=== PATIENT | female | born 1985 | race Caucasian/White ===

== ENCOUNTER 2016-11-06 18:59 | Emergency (ER) | payer OTHER ==
[~2016-11-06] VITALS: Ht 172.7 cm; Wt 90.7 kg
[~2016-11-06 18:59] MED LIST: HYDR-971 PO; IBUP400T PO; OXYC-323 PO; PENI250T2 PO
[2016-11-06] MEDS ORDERED: ONDANSETRON PF 4 MG/2 ML VIAL. ONE (19:01)
[2016-11-06] MEDS: ONDANSETRON PF 4 MG/2 ML VIAL. IV ONE ×2 (19:05)
[2016-11-06] MEDS: FAMOTIDINE 20 MG/2 ML VIAL IVP ONE (19:20)
[2016-11-06] MEDS: IV NORMAL SALINE 1,000ML 1,000 ML IV SCH (19:20)
[2016-11-06 19:35] LABS: BASO # 0.1 x10^3/uL (0.0-0.2); BASO % 1 % (0-3); EOS # 0.2 x10^3/uL (0.0-0.7); EOS % 1 % (0-3); HEMATOCRIT 36.9 % (36.0-47.0); HEMOGLOBIN 12.5 g/dL (12.0-15.5); LYMPH # 2.1 x10^3/uL (1.0-4.8); LYMPH % 14 % (24-48); MEAN CORPUSCULAR HEMOGLOBIN 32 pg (25-35); MEAN CORPUSCULAR HGB CONC 34 g/dL (31-37); MEAN CORPUSCULAR VOLUME 96 fL (79-100); MONO # 0.9 x10^3/uL (0.0-1.1); MONO % 6 % (0-9); NEUT # 11.9 x10^3uL (1.8-7.7); NEUT % 78 % (31-73); PLATELET COUNT 262 x10^3/uL (140-400); RED BLOOD COUNT 3.86 x10^6/uL (3.50-5.40); RED CELL DISTRIBUTION WIDTH 12.7 % (11.5-14.5); WHITE BLOOD COUNT 15.3 x10^3/uL (4.0-11.0)
--- NOTE | 2016-11-06 19:37 | PHYS DOC ---
General Chief Complaint: VOMITING IN Stated Complaint: VOMITING IN Time Seen by MD: 19:04 Source: patient, EMS, old records Exam Limitations: no limitations Problems: History of Present Illness Initial Comments Pt is 31/F states she's 4mos gestation to ED via EMS for n/v. Pt is A1 thinks she's 4mos gestation (LMP estimated 2/1 but pt is not sure) to ED c/o N/V. States she had hyperemesis gravidarium with prior pregnancies and tonight's sx are consistent with prior. No focal abdominal pain, just n/v and dry heaves. N/V started yesterday, in past pt took zofran with good relief. Still smoking, scheduled for initial OB appointment next week. No prearrival treatment, no abdominal/low back/pelvic/vaginal symptoms. No fever/ chills/VELAZQUEZ/myalgias. Timing/Duration: 24 hours Severity: severe Modifying Factors: worse with eating, improves with medication, worse with movement, improves with rest Associated Symptoms: malaise, nausea/vomiting, weakness, other Allergies: Coded Allergies: No Known Drug Allergies (Unverified , 03/31/16) Past Medical History Medical History: other (asthma, anxiety, depression, hyperemesis gravidarium) Surgical History: noncontributory (CS) Social History Smoker: cigarettes (h/o 1/2PPD denies current) Alcohol: occasionally Drugs: none Review of Systems Constitutional: denies chills, denies fever, malaise Respiratory: denies cough, denies shortness of breath, denies wheezing Cardiovascular: denies chest pain, denies palpitations, denies syncope Gastrointestinal: denies abdominal pain, denies constipation, denies diarrhea, nausea vomiting Genitourinary: denies discharge, denies dysuria, denies hematuria Musculoskeletal: denies back pain, denies joint swelling, denies neck pain Psychiatric/Neurological: denies headache, denies numbness, denies paresthesia Hematologic/Lymphatic: denies blood clots, denies easy bleeding, denies easy bruising Physical Exam General Appearance: moderate distress (n/v, retching), obese Eyes: bilateral eye EOMI, bilateral eye PERRL, bilateral eye normal inspection Ear, Nose, Throat: hearing grossly normal, normal ENT inspection, normal pharynx Neck: non-tender, supple Respiratory: normal breath sounds, no respiratory distress Cardiovascular: normal peripheral pulses, regular rate, rhythm Gastrointestinal: soft (ND, diffusely TTP no r/g/mass, neg mcburn/aaron, BS normal) Rectal: deferred Back: no CVA tenderness, no vertebral tenderness Extremities: non-tender, normal inspection, no pedal edema Neurologic/Psychiatric: manager research II-XII nml as tested, no motor/sensory deficits, alert, normal mood/affect, oriented x 3 Skin: normal color, warm/dry Orders, Labs, Meds Pertinent labs: WBC 15.3, K+ 3.2, emesis gastroccult negative, serum HCG 2049 K+ po given for replacement. Pt feeling better with IV fluids/zofran, ready for d/c. She expressed agreement/understanding with treatment plan. Departure Time of Disposition: 20:43 Disposition: 01 HOME, SELF-CARE Diagnosis: hyperemesis gravidarium, hypokalemia Condition: IMPROVED Patient Instructions: Diet - Hyperemesis Gravidarum, Hyperemesis Gravidarum, Hypokalemia-Brief Additional Instructions: Rest, no strenuous activity. Aggressive hydration with gatorade, water. Stop smoking, seek medical assistance if necessary. See handouts for diet/lifestyle changes. Eat one banana twice daily until OB appointment. Rx: zofran odt Follow up with [facility]ORDS MANAGER this week as scheduled. Return to ED with new or changing symptoms. RADHA RICO DO Nov 06, 2016 19:37
[2016-11-06 19:46] LABS: AMORPHOUS SEDIMENT,UR PRESENT /HPF; BACTERIA,URINE 0 /HPF (0-FEW); BILIRUBIN,URINE NEG (NEG); CLARITY,URINE CLEAR; COLOR,URINE YELLOW; GLUCOSE,URINE NEG (NEG); NITRITE,URINE NEG (NEG); RBC,URINE OCC /HPF (0-2); SQUAMOUS EPITHELIAL CELL,UR MOD /LPF; UROBILINOGEN,URINE 1 mg/dL (0.2 mg/dL); WBC,URINE OCC /HPF (0-4)
[2016-11-06 19:48] LABS: CALCIUM 8.4 mg/dL (8.5-10.1); CREATININE 0.8 mg/dL (0.6-1.0); DIRECT BILIRUBIN 0.1 mg/dL (0.0-0.2); GFR 83.7; POTASSIUM 3.2 mmol/L (3.5-5.1); TOTAL BILIRUBIN 0.3 mg/dL (0.2-1.0); TOTAL PROTEIN 7.2 g/dL (6.4-8.2)
[2016-11-06 20:04] LABS: GASTRIC OB PAT NEGATIVE (NEG)
[2016-11-06 20:24] VITALS: BP 111/53
[2016-11-06] MEDS ORDERED: ONDA4TAB10 PO (20:47)
[2016-11-06] MEDS: ONDANSETRON 4MG ODT 4TABLET STARTPACK. PO ONE (20:56)
[2016-11-06] MEDS: POTASSIUM CHLORIDE 20 MEQ TABLET.ER. PO ONE (20:56)
[2016-11-06 21:10] LABS: % BASOS 1 % (0-3); % LYMPHS 19 % (24-48); % MONOS 4 % (0-10); % SEGS 76 % (35-66); HYPOCHROMIA SLIGHT; PLT ESTIMATE ADEQUATE (ADEQUATE); POLYCHROMASIA SLIGHT
[2016-11-06 21:11] LABS: OVALOCYTES OCC
== END 2016-11-06 20:55 | disposition home or self-care (01) ==
LOC: ER 18:59
DX: O21.0 Mild hyperemesis gravidarum (principal); E87.6 Hypokalemia; O99.331 Smoking (tobacco) complicating pregnancy, first trimester; J45.909 Unspecified asthma, uncomplicated; Z3A.12 12 weeks gestation of pregnancy
CPT/HCPCS: 36415; 80048; 80076; 81001; 82271; 84702; 85007; 85027; 96361; 96374; 96375; 99284; J2405; Q0162; S0028; J7030

== ENCOUNTER 2016-11-08 11:00 | Emergency (ER) | payer OTHER ==
[~2016-11-08] VITALS: Ht 172.7 cm; Wt 90.7 kg
[~2016-11-08 11:00] MED LIST changes: +ONDA4TAB10 PO
--- NOTE | 2016-11-08 11:15 | PHYS DOC ---
General Stated Complaint: ANXIETY ATTACK Time Seen by MD: 11:03 Source: patient, old records Exam Limitations: no limitations Problems: History of Present Illness Initial Comments Pt is 31/F to ED c/o panic attack. Pt is 6 mos gestation, states she had argument with her SO about 3 hours ago causing a panic attack. She usually takes klonopin but her doctor will not refill med due to . Pt was seen here 11/06 (two days ago) with hyperemesis gravidarium and hypokalemia she did well with ED treatment and was d/c home. Pt reportedly was seen at [facility] yesterday for similar symptoms, those records have been requested. Denies SI/HI. Historian was RN. Timing/Duration: 1-3 hours Severity: severe Modifying Factors: improves with other Allergies: Coded Allergies: No Known Drug Allergies (Unverified , 03/31/16) Past Medical History Medical History: other (asthma, anxiety, depression, hyperemesis gravidarium, hypokalemia) Surgical History: noncontributory (CS) Social History Smoker: cigarettes, less than 1 pack/day Alcohol: occasionally Drugs: none Review of Systems All Other Systems: Reviewed and Negative (unknown, pt left without being seen) Physical Exam General Appearance: other (no exam, pt left AMA without being seen) Orders, Labs, Meds Pt total stay in ED 28 minutes. RN reports shortly after arrival pt began complaining to staff that she wasn't being seen fast enough. Pt has history of aggressive behavior, impatience, and verbal abuse most recently 11/06 ED visit ( see my documentation and nn). Pt reportedly started an altercation, threatened RN using profanity. RN notified pt this behavior not tolerated and security would be notified. Pt continued tirade and reportedly left AMA without being seen see nn. Departure Disposition: AGAINST MEDICAL ADVICE Diagnosis: noncompliance, , against medical advice Condition: LEFT WITHOUT BEING SEEN RADHA RICO DO Nov 08, 2016 11:15
[2016-11-08 11:20] VITALS: BP 111/53
== END 2016-11-08 11:42 | disposition left against medical advice (07) ==
LOC: ER 11:00
DX: O26.892 Other specified pregnancy related conditions, second trimester (principal); O99.332 Smoking (tobacco) complicating pregnancy, second trimester; F41.0 Panic disorder [episodic paroxysmal anxiety]; F32.9 Major depressive disorder, single episode, unspecified; F41.9 Anxiety disorder, unspecified; J45.909 Unspecified asthma, uncomplicated; E87.6 Hypokalemia; Z91.14 Patient's other noncompliance with medication regimen; Z3A.24 24 weeks gestation of pregnancy
CPT/HCPCS: 99281

== ENCOUNTER 2016-11-22 10:13 | Emergency (ER) | payer OTHER ==
[~2016-11-22] VITALS: Ht 172.7 cm; Wt 90.7 kg
[2016-11-22 10:22] VITALS: BP 137/72
--- NOTE | 2016-11-22 11:01 | ED.ADGEN ---
Past History Past Medical History: Asthma Past Surgical History: Alcohol Use: None Drug Use: None Adult General HPI HPI Patient is a 31-year-old female presents emergency Department clinic 2 day history of cough and nasal congestion. She was receiving by her primary care physician yesterday who diagnosed with an acute bronchitis. She prescribed her albuterol inhaler along with supportive care. Review of Systems Review of Systems Constitutional: Denies fever or chills [] Eyes: Denies change in visual acuity, redness, or eye pain [] HENT: Denies nasal congestion or sore throat [] Respiratory: Denies cough or shortness of breath [] Cardiovascular: No additional information not addressed in HPI [] GI: Denies abdominal pain, nausea, vomiting, bloody stools or diarrhea [] : Denies dysuria or hematuria [] Musculoskeletal: Denies back pain or joint pain [] Integument: Denies rash or skin lesions [] Neurologic: Denies headache, focal weakness or sensory changes [] Endocrine: Denies polyuria or polydipsia [] Allergies Allergies Allergies Coded Allergies Type Severity Reaction Last Updated Verified No Known Drug Allergies 03/31/16 No Physical Exam Physical Exam Constitutional: Well developed, well nourished, no acute distress, non-toxic appearance. [] HENT: Normocephalic, atraumatic, bilateral external ears normal, oropharynx moist, no oral exudates, nose normal. [] Eyes: PERRLA, EOMI, conjunctiva normal, no discharge. [] Neck: Normal range of motion, no tenderness, supple, no stridor. [] Cardiovascular:Heart rate regular rhythm, no murmur [] Lungs & Thorax: Bilateral breath sounds clear to auscultation [] Abdomen: Bowel sounds normal, soft, no tenderness, no masses, no pulsatile masses. [] Skin: Warm, dry, no erythema, no rash. [] Back: No tenderness, no CVA tenderness. [] Extremities: No tenderness, no cyanosis, no clubbing, ROM intact, no edema. [] Neurologic: Alert and oriented X 3, normal motor function, normal sensory function, no focal deficits noted. [] Psychologic: Affect normal, judgement normal, mood normal. [] Current Patient Data Vital Signs Vital Signs Date Time Temp Pulse Resp B/P Pulse Ox O2 Delivery O2 Flow Rate FiO2 11/22/16 10:22 97.8 98 20 96 Room Air EKG EKG [] Radiology/Procedures Radiology/Procedures [] Course & Med Decision Making Course & Med Decision Making Pertinent Labs and Imaging studies reviewed. (See chart for details) Patient was instructed to continue following her physician's directions. She is follow-up with him as needed. [] Final Impression Final Impression Acute bronchitis [] Problems: Dragon Disclaimer Dragon Disclaimer This electronic medical record was generated, in whole or in part, using a voice recognition dictation system. SOPHIE LANDRY MD Nov 22, 2016 11:01
== END 2016-11-22 10:46 | disposition home or self-care (01) ==
LOC: ER 10:13
DX: J20.9 Acute bronchitis, unspecified (principal); J45.909 Unspecified asthma, uncomplicated
CPT/HCPCS: 99281

== ENCOUNTER 2016-12-06 23:05 | Emergency (ER) | payer OTHER ==
--- NOTE | 2016-12-06 23:26 | ED.ADGEN ---
Past History Past Medical History: Asthma Past Surgical History: Alcohol Use: None Drug Use: None Adult General Chief Complaint Chief Complaint " A little spider bit my Rt leg this morning.. but it gotten so much worse.... " HPI HPI Patient is a 31 year old female who presents with above hx and complaints of spider bite Rt. calf. Pt. states earlier yesterday it bite was just small pinpoint area and not tender. Pt. leg now very tender and has area 8 x 8 cm of erythema. No lymphatic drainage or adenopathy appreciated. No history of prior episodes of MRSA or cellulitis. Distal neurovascular intact. Patient is up-to-date with her tetanus vaccination. She has currently 7/2 months . Patient is 3 para 2. Review of Systems Review of Systems Constitutional: Denies fever or chills [] Eyes: Denies change in visual acuity, redness, or eye pain [] HENT: Denies nasal congestion or sore throat [] Respiratory: Denies cough or shortness of breath [] Cardiovascular: No additional information not addressed in HPI [] GI: Denies abdominal pain, nausea, vomiting, bloody stools or diarrhea [] : Denies dysuria or hematuria [] Musculoskeletal: Denies back pain or joint pain [] Integument: Complaints of spider bite right calf Neurologic: Denies headache, focal weakness or sensory changes [] Endocrine: Denies polyuria or polydipsia [] Family History Family History Noncontributory Current Medications Current Medications Current Medications Medications (Trade) Dose Ordered Sig/Randa Start Time Stop Time Status Last Admin Dose Admin Ceftriaxone Sodium (Rocephin Im) 1 gm 1X ONCE 12/07/16 01:00 12/07/16 01:01 DC 12/07/16 01:00 1 GM Clindamycin Palmitate HCl (Cleocin Pediatric) 300 mg Q8HRS 12/07/16 06:00 12/07/16 06:00 DC Clindamycin HCl (Cleocin) 300 mg 1X ONCE 12/07/16 01:00 12/07/16 01:03 DC 12/07/16 01:00 300 MG Allergies Allergies Allergies Coded Allergies Type Severity Reaction Last Updated Verified No Known Drug Allergies 03/31/16 No Physical Exam Physical Exam Constitutional: in acute distress, non-toxic appearance. [] HENT: Normocephalic, atraumatic, bilateral external ears normal, oropharynx moist, no oral exudates, nose normal. [] Eyes: PERRLA, EOMI, conjunctiva normal, no discharge. [] Neck: Normal range of motion, no tenderness, supple, no stridor. [] Cardiovascular:Heart rate regular rhythm, no murmur [] Lungs & Thorax: Bilateral breath sounds equal with scattered wheezes auscultation [] Abdomen: Bowel sounds normal, soft, no tenderness, no masses, no pulsatile masses. Gravid. movements appreciated. heart rate approximate 156- 160 Skin: Warm, dry, no erythema, area of cellulitis or insect bite right calf as per history of present illness Back: No tenderness, no CVA tenderness. [] Extremities: No tenderness, no cyanosis, no clubbing, ROM intact, no ankle edema. [] Neurologic: Alert and oriented X 3, normal motor function, normal sensory function, no focal deficits noted. DTRs +2 at patella Psychologic: Affect anxious, judgement normal, mood normal. [] Current Patient Data Vital Signs Vital Signs Date Time Temp Pulse Resp B/P Pulse Ox O2 Delivery O2 Flow Rate FiO2 12/07/16 00:36 97.8 87 20 95 EKG EKG [] Radiology/Procedures Radiology/Procedures [] Course & Med Decision Making Course & Med Decision Making Pertinent Labs and Imaging studies reviewed. (See chart for details). Patient massage area of insect bite and cellulitis. Polysporin 4 times a day. Patient to take clindamycin 300 mg 3 times a day for the next 7 days. Ice packs to area of erythema. Patient may take Benadryl 25 mg up 4 times a day for itching. If pain patient may take Tylenol, if marked pain may take Vicodin up 4 times a day. Must follow-up primary care. Return if any concerns. Patient encouraged to stop smoking. [] Final Impression Final Impression 1. History of right calf spider bite 2. Right calf cellulitis versus inflammatory reaction 3. Tobacco abuse 4. Gravid 7 and 1/2 months. [] Problems: Dragon Disclaimer Dragon Disclaimer This electronic medical record was generated, in whole or in part, using a voice recognition dictation system. KEYLA FERNANDEZ MD Dec 06, 2016 23:26
[2016-12-07 00:36] VITALS: BP 123/70
[2016-12-07] MEDS ORDERED: CLIN300C86 PO (00:39)
[2016-12-07] MEDS ORDERED: HYDR1TAB12 PO (00:39)
[2016-12-07] MEDS ORDERED: BACI28.34 TP (00:39)
[2016-12-07] MEDS: CLINDAMYCIN HCL 150 MG CAPSULE PO ONE (01:00)
[2016-12-07] MEDS: CEFTRIAXONE IM 1 GM VIAL. IM ONE (01:00)
[2016-12-07] MEDS ORDERED: CLINDAMYCIN 75 MG/5 ML ORAL SOLUTION. PO SCH (06:00)
== END 2016-12-07 01:00 | disposition home or self-care (01) ==
LOC: ER 23:07
DX: O26.891 Other specified pregnancy related conditions, first trimester (principal); T63.301A Toxic effect of unspecified spider venom, accidental (unintentional), initial encounter; O99.331 Smoking (tobacco) complicating pregnancy, first trimester; J45.909 Unspecified asthma, uncomplicated; Z3A.01 Less than 8 weeks gestation of pregnancy; Y92.89 Other specified places as the place of occurrence of the external cause
CPT/HCPCS: 96372; 99283; J0696

== ENCOUNTER 2016-12-08 15:42 | Emergency (ER) | payer OTHER ==
[~2016-12-08 15:42] MED LIST changes: +BACI28.34 TP; +CLIN300C86 PO; +HYDR1TAB12 PO
[2016-12-08 15:45] VITALS: BP 126/63
--- NOTE | 2016-12-08 17:04 | ED.ADGEN ---
Past History Past Medical History: No Pertinent History Past Surgical History: Other Alcohol Use: Occasionally Drug Use: None Adult General Chief Complaint Chief Complaint R leg pain HPI HPI Patient is a 31 year old female who presents with R leg pain. Pt reports she has been taking clindamycin as prescribed on previous ER visit for cellulitis. At that time, the erythema was measured 8x8cm. Pt is requesting a work note today due to the pain she's having. Pt was prescribed hydrocodone for pain on previous ER visit. Review of Systems Review of Systems Constitutional: Denies fever or chills [] Eyes: Denies change in visual acuity, redness, or eye pain [] HENT: Denies nasal congestion or sore throat [] Respiratory: Denies cough or shortness of breath [] Cardiovascular: denies chest pain GI: Denies abdominal pain, nausea, vomiting, bloody stools or diarrhea [] : Denies dysuria or hematuria [] Musculoskeletal: Denies back pain Integument: Denies rash or skin lesions [] Neurologic: Denies headache, focal weakness or sensory changes [] Allergies Allergies Allergies Coded Allergies Type Severity Reaction Last Updated Verified No Known Drug Allergies 03/31/16 No Physical Exam Physical Exam Constitutional: Well developed, well nourished, no acute distress, non-toxic appearance. [] HENT: Normocephalic, atraumatic Eyes: conjunctiva normal, no discharge. [] Neck: Normal range of motion Lungs & Thorax: no respiratory distress Skin: Warm, dry, 1.5x1.5 cm erythema with central scab on R lateral mid lower leg without clear fluctuance, diffuse ttp throughout the RLE/calf that appears to be out of proportion , no other erythema or edema appreciated Neurologic: Alert and oriented X 3, normal motor function, normal sensory function, no focal deficits noted. [] Current Patient Data Vital Signs Vital Signs Date Time Temp Pulse Resp B/P Pulse Ox O2 Delivery O2 Flow Rate FiO2 12/08/16 15:45 96.6 90 18 97 Room Air EKG EKG [] Radiology/Procedures Radiology/Procedures [] Course & Med Decision Making Course & Med Decision Making Pertinent Labs and Imaging studies reviewed. (See chart for details) I suggested the patient we do a ultrasound to rule out abscess, our ultrasound machine would not work. Therefore I did order venous Doppler is concerned the patient's pain was out of proportion to her exam, possible DVT. I explained to the patient we would be ordering this test and asked that they look for abscess as well. However then patient explained to the nursing she didn't want to do this test she just wanted a worknote that said she did not have to go to work. Patient was told that we needed to rule out a serious cause for her intense pain. If she was not willing to have this test performed, she would need to sign out AGAINST MEDICAL ADVICE. The patient signed an AMA form and was given a work note for her visit here in the ED. It did not excuse her from going to work her today. Patient was angry at this response and patient walked out of the ER cursing at staff with multiple words of profanity, no difficulty with her gait or limping. Final Impression Final Impression Cellulitis of the right leg [] Problems: Dragon Disclaimer Dragon Disclaimer This electronic medical record was generated, in whole or in part, using a voice recognition dictation system. BENNY MULLINS MD Dec 08, 2016 17:03
== END 2016-12-08 16:15 | disposition left against medical advice (07) ==
LOC: ER 15:42
DX: L03.115 Cellulitis of right lower limb (principal)
CPT/HCPCS: 99281

== ENCOUNTER 2016-12-13 15:19 | Emergency (ER) | payer OTHER ==
[~2016-12-13] VITALS: Ht 172.7 cm; Wt 88.9 kg
[2016-12-13 15:55] VITALS: BP 120/86
--- NOTE | 2016-12-13 19:23 | ED.ADGEN ---
Past History Past Medical History: No Pertinent History Past Surgical History: No Surgical History Alcohol Use: None Drug Use: None Adult General HPI HPI Patient is a 31-year-old approximately 28 weeks gestation, who presents to the emergency department with complaint of abdominal cramping, nausea and vomiting, and vaginal discharge. Patient denies any fevers or chills, any injuries, any sick contacts or exposure. She states that this does not feel like her previous labor pains. Pain began several hours before arrival in the ED. Patient states she's had thick white discharge for the past several days, but denies any passage of fluid or bleeding from the vagina. States she can feel motions. Review of Systems Review of Systems Constitutional: Denies fever or chills [] Eyes: Denies change in visual acuity, redness, or eye pain [] HENT: Denies nasal congestion or sore throat [] Respiratory: Denies cough or shortness of breath [] Cardiovascular: No additional information not addressed in HPI [] GI: Denies bloody stools or diarrhea [abdominal pain and cramping, nausea and vomiting.] : Denies dysuria or hematuria [] Musculoskeletal: Denies back pain or joint pain [] Integument: Denies rash or skin lesions [] Neurologic: Denies headache, focal weakness or sensory changes [] Endocrine: Denies polyuria or polydipsia [] Allergies Allergies Allergies Coded Allergies Type Severity Reaction Last Updated Verified No Known Drug Allergies 03/31/16 No Physical Exam Physical Exam Constitutional: Well developed, well nourished, no acute distress, non-toxic appearance. [] HENT: Normocephalic, atraumatic, bilateral external ears normal, oropharynx moist, no oral exudates, nose normal. [] Eyes: PERRLA, EOMI, conjunctiva normal, no discharge. [] Neck: Normal range of motion, no tenderness, supple, no stridor. [] Cardiovascular:Heart rate regular rhythm, no murmur, S1, S2, rubs or gallops. [] Lungs & Thorax: Bilateral breath sounds clear to auscultation, no wheezing, rhonchi, rales. No chest wall crepitus or tenderness. [] Abdomen: Bowel sounds normal, soft, no tenderness, no rebound, rigidity, no guarding, gravid abdomen, consistent with dates, no masses, no pulsatile masses. [] Skin: Warm, dry, no erythema, no rash. [] Back: No tenderness, no CVA tenderness. [] Extremities: No tenderness, no cyanosis, no clubbing, ROM intact, no edema. [] Neurologic: Alert and oriented X 3, normal motor function, normal sensory function, no focal deficits noted. [] Psychologic: Affect normal, judgement normal, mood normal. [] Pelvic examination: Patient with external os 1 cm, internal os is closed, no contractions, patient noted to have a large amount of white discharge on glove. Current Patient Data Vital Signs Vital Signs Date Time Temp Pulse Resp B/P Pulse Ox O2 Delivery O2 Flow Rate FiO2 12/13/16 15:55 98.2 98 16 98 Room Air EKG EKG [] Radiology/Procedures Radiology/Procedures [] Course & Med Decision Making Course & Med Decision Making Pertinent Labs and Imaging studies reviewed. (See chart for details) Patient with no evidence of active labor or impending delivery. However as we do not have CHILD SUPPORT OFFICER at [facility] facility, and patient's complaints require CHILD SUPPORT OFFICER evaluation, I did speak with her CHILD SUPPORT OFFICER Dr. Akers, we will transfer the patient the EMS to [facility] for evaluation. She was agreeable with this plan, patient transferred via EMS without issue for additional CHILD SUPPORT OFFICER evaluation. Final Impression Final Impression [] Problems: (1) Abdominal pain in Qualifiers: Qualified Code: O26.893 - Other specified related conditions, third trimester Dragon Disclaimer Dragon Disclaimer This electronic medical record was generated, in whole or in part, using a voice recognition dictation system. ASTER LANDRY DO Dec 13, 2016 19:23
== END 2016-12-13 16:10 | disposition short-term general hospital (02) ==
LOC: ER 15:19
DX: O26.893 Other specified pregnancy related conditions, third trimester (principal); R10.9 Unspecified abdominal pain; R11.2 Nausea with vomiting, unspecified; O46.93 Antepartum hemorrhage, unspecified, third trimester; Z3A.28 28 weeks gestation of pregnancy
CPT/HCPCS: 99285

== ENCOUNTER 2016-12-19 15:37 | Emergency (ER) | payer OTHER ==
[~2016-12-19] VITALS: Ht 172.7 cm; Wt 88.9 kg
[~2016-12-19 15:37] MED LIST changes: +CLIN300C8 PO; -CLIN300C86 PO; -IBUP400T PO; +IBUP400T18 PO; -PENI250T2 PO; +PENI250T85 PO
[2016-12-19] MEDS ORDERED: IPRATRPIUM/ALBUTEROL 0.5/2.5MG 3 ML NEBU. NEB ONE (16:45)
--- NOTE | 2016-12-19 16:53 | PHYS DOC ---
Past History Past Medical History: Anxiety Past Surgical History: No Surgical History Alcohol Use: None Drug Use: None Adult General Chief Complaint Chief Complaint: SHORTNESS OF BREATH HPI HPI Patient is a 31-year-old female who is with EDC February 22 with the complaint of shortness of air and chest tightness. The patient does have a history of asthma. The patient states she woke up this morning with some chest tightness and she used her inhaler. Then she had a big fight with her family and got an anxiety attack which made her shortness of air worse. She also has had some allergy symptoms and states there is a lot of pollen in the air. She has a history of "bad anxiety". Patient does smoke cigarettes, she is working to quit since she is , she has cut down from a pack a day to 2 cigarettes a day. Patient has not had cold symptoms but she has had allergy symptoms. Past medical history significant for asthma, she is as mentioned. Review of Systems Review of Systems Constitutional: Denies fever or chills [] HENT: Nasal allergy symptoms Respiratory: As in history of present illness Cardiovascular: Chest tightness that does not sound cardiac : He is Current Medications Current Medications Current Medications Medications (Trade) Dose Ordered Sig/Randa Start Time Stop Time Status Last Admin Dose Admin Albuterol/ Ipratropium (Duoneb) 3 ml 1X ONCE 12/19/16 16:45 12/19/16 16:46 DC 12/19/16 16:37 3 ML Allergies Allergies Allergies Coded Allergies Type Severity Reaction Last Updated Verified No Known Drug Allergies 03/31/16 No Physical Exam Physical Exam Constitutional: Well developed, well nourished, no acute distress, non-toxic appearance. No dyspnea, pulse ox on room air 97%, alert, mentating normally. HENT: Normocephalic, atraumatic, bilateral external ears normal, nose normal. [ ] Eyes: conjunctiva normal, no discharge. [] Neck: Normal range of motion, no stridor. [] Cardiovascular:Heart rate regular rhythm, no murmur nontoxic and cardiac Lungs & Thorax: Good breath sounds throughout with expiratory wheezes throughout Skin: Warm, dry, no erythema, no rash. [] Extremities: No tenderness, no cyanosis, no clubbing, ROM intact, no edema. [] Neurologic: Alert and oriented X 3, normal motor function, normal sensory function, no focal deficits noted. [] Current Patient Data Vital Signs Vital Signs Date Time Temp Pulse Resp B/P (MAP) Pulse Ox O2 Delivery O2 Flow Rate FiO2 12/19/16 15:44 98.3 96 16 96 Room Air EKG EKG [] Radiology/Procedures Radiology/Procedures [] Course & Med Decision Making Course & Med Decision Making Pertinent Labs and Imaging studies reviewed. (See chart for details) 31-year-old female with a history of asthma who is presents with chest tightness and shortness of air, she is wheezing on exam. She has a mild exacerbation of asthma. She was given a breathing treatment. Recheck of patient after DuoNeb treatment. Her lungs are clear to auscultation without wheezing, with good bilateral equal breath sounds. Pulse ox on room air 97%. The patient is able to talk without difficulty or dyspnea. I encouraged her in her efforts to quit smoking. She does have an inhaler, told her to use it every 4 hours until better. She should stay inside out of the air if she believes that seasonal allergies are contributing to her symptoms. 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 [] Dragon Disclaimer Dragon Disclaimer This chart was dictated in whole or in part using Voice Recognition software in a busy, high-work load, and often noisy Emergency Department environment. It may contain unintended and wholly unrecognized errors or omissions. Departure Departure: Impression: Primary Impression: Asthma exacerbation Disposition: 01 HOME, SELF-CARE Condition: IMPROVED Referrals: PCP,NO (PCP) Patient Instructions: Asthma, Adult, [id number] Additional Instructions: Use your inhaler every 4 hours until better. Stay well-hydrated. Stay inside out of the air if you think allergies are contributing to this. It is important to continue to quit smoking for both your baby's health and your asthma. MARISA STAPLETON MD December 19, 2016 16:53
[2016-12-19 16:54] VITALS: BP 128/67
== END 2016-12-19 17:10 | disposition home or self-care (01) ==
LOC: ER 15:37
DX: O99.512 Diseases of the respiratory system complicating pregnancy, second trimester (principal); J45.901 Unspecified asthma with (acute) exacerbation; R07.89 Other chest pain; Z3A.00 Weeks of gestation of pregnancy not specified
CPT/HCPCS: 94640; 99283; J7620

== ENCOUNTER 2017-01-13 12:00 | Emergency (ER) | payer OTHER ==
[~2017-01-13] VITALS: Ht 172.7 cm; Wt 90.7 kg
[2017-01-13 12:00] VITALS: BP 138/72
[2017-01-13] MEDS ORDERED: PENI500T PO (12:22)
--- NOTE | 2017-01-13 12:22 | PHYS DOC ---
Past History Past Medical History: Anxiety Past Surgical History: No Surgical History Alcohol Use: None Drug Use: None Adult General Chief Complaint Chief Complaint: DENTAL PROBLEM HPI HPI 31 y.o. F 33 weeks presenting to the emergency department with dental pain. The pain is throbbing and moderate intermittent pain. His been present for more than a week and her dentist told her that she didn't need to have it fixed until it was emergently painful and severely swollen. The pain is nonradiating. Review of systems is negative for chest pain shortness of breath abdominal pain. All other review of systems is negative unless otherwise noted in history of present illness. Pertinent physical exam findings. No swelling of the tongue, no stridor, swallowing secretions without difficulty, no neck tenderness or crepitus. ED course: 31-year-old female with dental pain. I recommend acetaminophen and ice packs for pain control to follow up with her dentist today as today is a weekday during the middle of the day. Review of Systems Review of Systems SEE ABOVE. Allergies Allergies Allergies Coded Allergies Type Severity Reaction Last Updated Verified No Known Drug Allergies 03/31/16 No Physical Exam Physical Exam Constitutional: Well developed, well nourished, no acute distress, non-toxic appearance. HENT: Normocephalic, atraumatic, bilateral external ears normal, oropharynx moist, no oral exudates, nose normal. [] Eyes: PERRLA, EOMI, conjunctiva normal, no discharge. Neck: Normal range of motion, no tenderness, supple, no stridor. [] Cardiovascular:Heart rate regular rhythm, no murmur Lungs & Thorax: Bilateral breath sounds clear to auscultation [] Abdomen: Bowel sounds normal, soft, no tenderness, no masses, no pulsatile masses. [] Skin: Warm, dry, no erythema, no rash. Back: No tenderness, no CVA tenderness. [] Extremities: No tenderness, no cyanosis, no clubbing, ROM intact, no edema. Neurologic: Alert and oriented X 3, normal motor function, normal sensory function, no focal deficits noted. [] Psychologic: Affect normal, judgement normal, mood normal. EKG EKG [] Radiology/Procedures Radiology/Procedures [] Course & Med Decision Making Course & Med Decision Making Pertinent Labs and Imaging studies reviewed. (See chart for details) [] Dragon Disclaimer Dragon Disclaimer This chart was dictated in whole or in part using Voice Recognition software in a busy, high-work load, and often noisy Emergency Department environment. It may contain unintended and wholly unrecognized errors or omissions. Departure Departure: Impression: Primary Impression: Pain, dental Disposition: HOME, SELF-CARE Condition: STABLE Referrals: PCP,NO (PCP) Patient Instructions: Dental Caries Additional Instructions: Thank you for allowing us to participate in your care today. I recommend you visit your dentist today. If you do not have a primary care provider you can ask for a list of our primary care providers. Return to the emergency department you have any new or concerning findings. This should be evaluated by the primary care physician and any necessary consulting services for continued management within a few days after discharge. Return to emergency room if you have any new or concerning symptoms including but not limited to fever, chills, nausea, vomiting, intractable pain, any new rashes, chest pain, shortness of air, uncontrolled bleeding, difficulty breathing, and/or vision loss. Scripts Penicillin V Potassium (PENICILLIN V POTASSIUM) 500 Mg Tablet 1 TAB PO BID, #6 TAB Prov: CARYL SKAGGS MD 01/13/17 CARYL SKAGGS MD January 13, 2017 12:22
== END 2017-01-13 12:25 | disposition home or self-care (01) ==
LOC: ER 12:00
DX: O99.613 Diseases of the digestive system complicating pregnancy, third trimester (principal); K08.89 Other specified disorders of teeth and supporting structures; F41.9 Anxiety disorder, unspecified; Z3A.33 33 weeks gestation of pregnancy
CPT/HCPCS: 99283

== ENCOUNTER 2017-03-07 21:10 | Emergency (ER) | payer SELFPAY ==
[~2017-03-07 21:10] MED LIST changes: +PENI500T PO
[2017-03-07 21:32] VITALS: BP 104/44
[2017-03-07] MEDS ORDERED: HYDR30CR61 TP (21:45)
[2017-03-07] MEDS ORDERED: HYDR25SU18 RC (21:45)
--- NOTE | 2017-03-07 21:45 | PHYS DOC ---
Past History Past Medical History: Asthma Past Surgical History: Additional Past Surgical Histo: C section 01/19/17 Alcohol Use: None Drug Use: None Adult General Chief Complaint Chief Complaint: General Complaint-rectal pain HPI HPI Patient is a 31 year old female who presents with rectal pain. She states this just started about 4 hours prior to arrival. Denies any foreign body insertion. She did just have a baby on January 19 with a .She states that it hurts so bad she cannot sit. No bleeding that she is aware of. No fever, no vomiting, no abdominal pain. Review of Systems Review of Systems Constitutional: Denies fever or chills Eyes: Denies change in visual acuity, redness, or eye pain HENT: Denies nasal congestion or sore throat Respiratory: Denies cough or shortness of breath Cardiovascular: No chest pain GI: Denies abdominal pain, nausea, vomiting, bloody stools or diarrhea. Rectal pain per HPI. : Denies dysuria or hematuria Musculoskeletal: Denies back pain or joint pain Integument: Denies rash or skin lesions Neurologic: Denies headache, focal weakness or sensory changes Allergies Allergies Allergies Coded Allergies Type Severity Reaction Last Updated Verified No Known Drug Allergies 03/31/16 No Physical Exam Physical Exam Constitutional: Well developed, well nourished, no acute distress, non-toxic appearance. Crying in the bed. Abdomen: Bowel sounds normal, soft, no tenderness, no masses, no pulsatile masses. incision without redness or drainage. Rectal: small thrombosed hemorrhoid; no active bleeding at 3 o'clock position. Neurologic: Alert and oriented X 3, normal motor function, normal sensory function, no focal deficits noted. Current Patient Data Vital Signs Vital Signs Date Time Temp Pulse Resp B/P (MAP) Pulse Ox O2 Delivery O2 Flow Rate FiO2 03/07/17 21:32 98.3 80 20 95 Room Air Course & Med Decision Making Course & Med Decision Making Patient with a hemorrhoid. Anusol sup placed and rx for cream. She was still in a lot of pain so lidocaine jelly placed. she was told to obtain OTC hemorrhoidal cream as well as that will have anesthetic for use at home. Follow up with her PCP for referral if hemorrhoid worsens. Dragon Disclaimer Dragon Disclaimer This chart was dictated in whole or in part using Voice Recognition software in a busy, high-work load, and often noisy Emergency Department environment. It may contain unintended and wholly unrecognized errors or omissions. Departure Departure: Impression: Primary Impression: Hemorrhoid Disposition: 01 HOME, SELF-CARE Condition: GOOD Referrals: PCP,NO (PCP) Patient Instructions: Hemorrhoids Additional Instructions: Use the suppositories morning and night. Place the cream at least 3 times a day Scripts Hydrocortisone (ANUSOL-HC) 30 Gm Cream..g. 1 CHARLY TP BID for 10 Days, #30 GM 1 Refill Prov: VENKAT MEDEIROS MD 03/07/17 Hydrocortisone Acetate (ANUSOL-HC) 25 Mg Supp.rect 1 SUPP RC BID, #14 SUPP Prov: VENKAT MEDEIROS MD 03/07/17 Problem Qualifiers Primary Impression: Hemorrhoid Hemorrhoid type: unspecified Qualified Codes: K64.9 - Unspecified hemorrhoids VENKAT MEDEIROS MD Mar 07, 2017 21:45
[2017-03-07] MEDS ORDERED: LIDOCAINE/PRILOCAINE TOPICAL CREAM 5GM TUBE. TP ONE (22:43)
[2017-03-07] MEDS ORDERED: LIDOCAINE 2% VISCOUS 15 ML SOLUTION. SWSW ONE (23:00)
[2017-03-07] MEDS ORDERED: HYDROCORTISONE ACETATE 25 MG SUPP.RECT PR ONE (23:00)
== END 2017-03-07 23:55 | disposition home or self-care (01) ==
LOC: ER 21:10
DX: K64.9 Unspecified hemorrhoids (principal); J45.909 Unspecified asthma, uncomplicated
CPT/HCPCS: 99283